=== PATIENT | female | born 1950 | race Caucasian/White ===

== ENCOUNTER 2020-09-09 10:04 | Day surgery (SDC) | payer OTHER ==
[~2020-09-09] VITALS: Ht 175.3 cm; Wt 93.8 kg
[~2020-09-09 10:04] MED LIST: GABA100 PO; MONT10T PO
== END 2020-09-09 11:51 | disposition home or self-care (01) ==
LOC: ORSCSDS 10:04
PROVIDERS: Internal Medicine Gastroenterology
PROC: 0DBH8ZX Excision of Cecum, Via Natural or Artificial Opening Endoscopic, Diagnostic (ICD-10-PCS; principal; 2020-09-09 11:15)
PROC: 0DBM8ZX Excision of Descending Colon, Via Natural or Artificial Opening Endoscopic, Diagnostic (ICD-10-PCS; principal; 2020-09-09 11:15)
PROC: 0DBN8ZX Excision of Sigmoid Colon, Via Natural or Artificial Opening Endoscopic, Diagnostic (ICD-10-PCS; principal; 2020-09-09 11:15)
DX: Z12.11 Encounter for screening for malignant neoplasm of colon (principal); D12.0 Benign neoplasm of cecum; D12.4 Benign neoplasm of descending colon; D12.5 Benign neoplasm of sigmoid colon; K57.30 Diverticulosis of large intestine without perforation or abscess without bleeding; K64.8 Other hemorrhoids; K44.9 Diaphragmatic hernia without obstruction or gangrene; E78.5 Hyperlipidemia, unspecified; E66.9 Obesity, unspecified; Z68.33 Body mass index [BMI] 33.0-33.9, adult; Z87.891 Personal history of nicotine dependence; Z79.899 Other long term (current) drug therapy
CPT/HCPCS: 88305; J2704; J7120

== ENCOUNTER 2023-12-30 12:23 | Day surgery (SDC) | payer MEDICARE, OTHER ==
[~2023-12-30] VITALS: Ht 175.3 cm; Wt 97.8 kg
[~2023-12-30 12:23] MED LIST changes: +Lactated Ringer's 1,000 ML IV ONE; +Lactated Ringer's 1,000 ML ONE; +propofoL 50 ML IV ONE
[2023-12-30] MEDS ORDERED: Lactated Ringer's 1,000 ML IV ONE (13:20)
[2023-12-30 14:31] VITALS: BP 130/83
== END 2023-12-30 14:36 | disposition home or self-care (01) ==
LOC: ORSCSDS 12:23
PROVIDERS: Internal Medicine Gastroenterology
PROC: 0DBH8ZX Excision of Cecum, Via Natural or Artificial Opening Endoscopic, Diagnostic (ICD-10-PCS; principal; 2023-12-30 13:30)
DX: R19.4 Change in bowel habit (principal); K62.5 Hemorrhage of anus and rectum; Z86.0101 Personal history of adenomatous and serrated colon polyps; K64.8 Other hemorrhoids; K63.5 Polyp of colon; K57.30 Diverticulosis of large intestine without perforation or abscess without bleeding; Z86.73 Personal history of transient ischemic attack (TIA), and cerebral infarction without residual deficits; K21.9 Gastro-esophageal reflux disease without esophagitis; E78.5 Hyperlipidemia, unspecified; Z79.899 Other long term (current) drug therapy
CPT/HCPCS: 88305; J2704; J7120